=== PATIENT | male | born 1945 | race Caucasian/White ===

== ENCOUNTER 2017-03-26 14:46 | Emergency (ER) | payer MEDICARE, OTHER ==
[2017-03-26 14:50] VITALS: BP 129/65; PULSE 104; RESP 18; O2SAT 98
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
[2017-03-26] MEDS ORDERED: HYDROcodone-APAP 5-325 mg Tablet PO ONE (15:25)
[2017-03-26] MEDS ORDERED: HYDR-4003 PO (15:26)
[2017-03-26 16:30] VITALS: BP 133/72; PULSE 66
== END 2017-03-26 16:30 | disposition home or self-care (01) ==
LOC: SED 14:46
DX: S70.11XA Contusion of right thigh, initial encounter (principal); S80.01XA Contusion of right knee, initial encounter; S30.810A Abrasion of lower back and pelvis, initial encounter; S80.11XA Contusion of right lower leg, initial encounter; R52 Pain, unspecified; V58.0XXA Driver of pick-up truck or van injured in noncollision transport accident in nontraffic accident, initial encounter; Y93.9 Activity, unspecified; Y92.9 Unspecified place or not applicable; Y99.8 Other external cause status; Z88.0 Allergy status to penicillin